=== PATIENT | male | born 1985 | race Caucasian/White ===

== ENCOUNTER 2019-05-08 11:10 | Emergency (ER) | payer MEDICAID, OTHER ==
[~2019-05-08] VITALS: Ht 170.2 cm; Wt 78.7 kg
[2019-05-08 11:11] VITALS: BP 158/83
--- NOTE | 2019-05-08 12:08 | REP ---
Clinical: Trauma. Technique: AP and lateral views of the left forearm. Findings: No acute fracture or dislocation. No subcutaneous emphysema or foreign body. Impression: Normal forearm. No acute fracture. Electronically Signed by Saman Ballard MD 05/08/2019 11:59 A
--- NOTE | 2019-05-08 12:14 | REP ---
Clinical: Trauma. Technique: AP, lateral, bilateral oblique views of the right and left elbow. Findings: Left elbow demonstrates a very subtle cortical based lucency at the proximal radial metaphysis. This requires correlation and may reflect subtle nondisplaced fracture versus small osteophyte related to repetitive use and degenerative changes. Remainder of the left elbow appears intact and within normal limits. The lateral view is suboptimal and hemarthrosis along with elevation to the anterior fat pad cannot be evaluated. The right elbow demonstrates a very subtle cortical based lucency and irregularity at the proximal radial metaphysis. This requires correlation and may reflect subtle nondisplaced fracture versus small osteophyte related to repetitive use and degenerative changes. However, lateral view cannot exclude elevation to the anterior fat pad further raising the suspicion for acute injury. Remainder of the right elbow appears intact and within normal limits. Impression: Very subtle similar irregularities involving the bilateral radial metaphyses. Given the similarities, chronic change is within differential and should be correlated clinically. Subtle injuries cannot be excluded. Electronically Signed by Saman Ballard MD 05/08/2019 12:05 P
--- NOTE | 2019-05-08 12:42 | REP ---
Right knee: Five views. History: Trauma. Findings: Five views right knee demonstrate mild osteoarthritic spurring. No fracture, subluxation, or joint effusion is evident. Impression: Minimal osteoarthritic spurring. No traumatic abnormality noted. Electronically Signed by Boris Vasquez MD 05/08/2019 12:58 P
[2019-05-08] MEDS ORDERED: IBUP-1022 PO (13:01)
== END 2019-05-08 13:19 | disposition home or self-care (01) ==
LOC: M ED 11:10
DX: S52.124A Nondisplaced fracture of head of right radius, initial encounter for closed fracture (principal); S52.125A Nondisplaced fracture of head of left radius, initial encounter for closed fracture; W17.89XA Other fall from one level to another, initial encounter; Y92.89 Other specified places as the place of occurrence of the external cause

== ENCOUNTER → 2019-08-14 | Outpatient (CLI) | payer OTHER ==
[~2019-08-14] MED LIST: IBUP-1022 PO
--- NOTE | 2019-08-14 13:49 | REP ---
MRI right knee without contrast: History: Contusion, rule out internal derangement. Comparison right knee radiographs May 08, 2019. Technique: Axial, coronal, and sagittal imaging planes were utilized. T1, T2 and [id number] images are included. MRI findings: Cortical and medullary bone signal intensity are normal. There is no evidence of occult fracture. There is a small joint effusion. No Mays's cyst. Patellar and quadriceps tendons appear intact. There is some prepatellar soft tissue edema anterior to the patellar tendon. Anterior and posterior cruciate ligaments have an intact appearance. There is a small lateral suprapatellar plica. Medial and lateral patellar retinacular structures are intact. There is a vertically oriented tear in the posterior body of the medial meniscus. There is mild medial meniscal extrusion in the midbody on coronal images. This is associated with some medial bowing of the medial collateral ligament. There is minimal marrow edema in the medial tibial plateau anteriorly underlying the anterior horn of the medial meniscus. There is some subtle amputation of the inner free margin of the medial meniscus at mid body level. No lateral meniscal tear is appreciated. There is a small bone island in the medial tibial plateau. Impression: Medial meniscal tear. Small joint effusion. Prepatellar tendon soft tissue swelling. Small zone of marrow edema in the medial tibial plateau just below the anterior horn of the medial meniscus. Small suprapatellar plica. No other evidence of internal derangement. Electronically Signed by Boris Vasquez MD 08/14/2019 01:56 P
== END ==
LOC: M RAD 12:08
PROVIDERS: ATTEND Physician Assistant
DX: S80.01XA Contusion of right knee, initial encounter (principal); W18.30XA Fall on same level, unspecified, initial encounter; Y92.9 Unspecified place or not applicable